=== PATIENT | male | born 1955 | race Caucasian/White ===

== ENCOUNTER 2016-10-28 13:08 | Inpatient (IN) ==
[2016-10-28] MEDS ORDERED: FUROSEMIDE 100 MG/10 ML VIAL IV STA (13:33)
[2016-10-28] MEDS ORDERED: DILTIAZEM 50 MG/10 ML VIAL IV STA (13:37)
--- NOTE | 2016-10-28 13:37 | Emergency Department Note ---
Cipriano Kaminski Rolonda, am scribing for, and in the presence of, Kranthi Shore MD 13: 33. Mone Kaminski James D, MD, personally performed the services described in this documentation, ascribed by Traci Cota in my presence, and it is both accurate and complete [id number] . Arrival - Arrival Chief Complaint: Shortness of Breath ED Nursing Triage Note: c/o sob and chf. pt has voided 800ml. Mode of Arrival: Stretcher Limitations: No Limitations Source: Patient, Old Records Reviewed, RN Notes Reviewed - History of Present Illness HPI Narrative: Pt is a 60 y/o male presenting to the ED via EMS from [place] for further evaluation of chest pain with an onset of hours ago. Pt has a PMHx of CHF, HTN, Cardiac dysrhythmia, and Cardiovascular problems. Pt confirms associated sxs of SOB onset of x1 day ago, that he couldn't breathe, and SOB worsens while lying down. No other complaint/pain in ED. Onset (ago): hour(s) Consistency: constant Severity: moderate Severity scale (1-10): 4 Allergies/Adverse Reactions: Allergies Allergy/AdvReac Type Severity Reaction Status Date / Time No Known Allergies Allergy Verified 02/07/16 15:18 Home Medications: Home Medications Medication Instructions Recorded Confirmed Type Amiodarone Tab [Cordarone Tab] 200 mg PO BID 02/07/16 10/28/16 History Atorvastatin [Lipitor] 40 mg PO BEDTIME 02/07/16 10/28/16 History Citalopram [CeleXA] 40 mg PO DAILY 02/07/16 10/28/16 History Glimepiride [Amaryl] 4 mg PO DAILY 02/07/16 10/28/16 History HYDROcodone/ACETAMIN 10-325 [[place] 1 tablet PO BID 02/07/16 10/28/16 History 10-325] Lisinopril 20 mg PO DAILY 02/07/16 10/28/16 History Apixaban [Eliquis] 5 mg PO BID #30 tablet 02/09/16 10/28/16 Rx Carvedilol [Coreg] 6.25 mg PO BID #60 tablet 02/09/16 10/28/16 Rx Nicotine 21 mg/24 Hr Patch 1 patch TRANSDERM DAILY #14 patch 02/09/16 10/28/16 Rx [Nicoderm CQ 21 mg/24 hr Patch] Aspirin EC Tab 81 mg PO DAILY 10/28/16 10/28/16 History Metformin HCl [Metformin HCl ER] 500 mg PO BID 10/28/16 10/28/16 History Review of System - Review of System 12 point system: reviewed and no additional remarkable complaints except as stated - Review of System Constitutional: Absent: fever Eyes: Absent: discharge Head/Ears/Nose/Throat: Absent: earache Respiratory: Present: respiratory distress (SOB) Cardiovascular: Absent: palpitations Gastrointestinal: Absent: abdominal pain Genitourinary male: Absent: dysuria Musculoskeletal: Absent: arm pain, back pain, leg pain, neck pain Skin: Absent: rash Neurological: Absent: headache Psychiatric: Absent: anxiety Endocrine: Absent: cold intolerance Hematological/Lymphatic: Absent: easy bleeding Medical,Surgical,& Family Hx - Medical History Cardio: History of: Cardiac Dysrhythmia (AFIB), Hypertension, Cardiovascular Problems (Suspected NICM) Endocrine: History of: Diabetes Mellitus (NIDDM) Respiratory: History of: Obstructive Sleep Apnea - Family History Family History: Reports;: Family Heart Disease - Social History Smoking Status: Smoker, status unknown Frequency of Alcohol Use: None Type of Drug Use: None Exam Vital Signs: Vital Signs Temperature 97.6 F 10/28/16 13:12 Pulse Rate 113 H 10/28/16 14:45 Respiratory Rate 20 10/28/16 14:45 Blood Pressure 124/80 10/28/16 14:45 O2 Sat by Pulse Oximetry 96 10/28/16 14:45 GENERAL: This is a well-nourished well-developed white male in no apparent distress. VITAL SIGNS: Reviewed HEENT: Head is atraumatic and normocephalic. Pupils are equal round react to light. Extraocular movements are intact. Oropharynx is benign with moist mucous membranes. NECK: Neck is soft and supple without tenderness. There are no masses. There is no lymphadenopathy. LUNGS: Bibasilar rales. Chest rises symmetrically. There is no chest wall tenderness. CV: Heart is irregularly irregular without murmurs rubs or gallops. ABDOMEN: Abdomen is soft, nontender to palpation. There are no abdominal abnormal masses palpated. There is no organomegaly. Bowel sounds are present and active. SKIN: Skin is warm and dry. No rash. EXTREMITIES: Patient has full range of motion without tenderness. There is no pedal edema. NEUROLOGIC: Awake alert and oriented 4. Cranial nerves II through XII are grossly intact. Motor is 5 over 5 in all extremities bilaterally. Course - Consultations Consultation #1: Discussed with Dr. Keller. Patient will be admitted to his service. Initial orders written for him. He will assume care of the patient upon arrival to the [facility]. Time: 15:50 Results - Labs Lab Results: I have reviewed the patients labs Labs: Lab performed at [facility] and reviewed by me: BNP 1406 CBC: WBCs 15,600, hemoglobin 13.4, hematocrit 41.7, Sodium 143, potassium 3.8, chloride 108, CO2 27, BUN 9, creatinine 0.7, glucose 172 Troponin 0.019, 4 INR 0.92 Laboratory Tests 10/28/ 14:25 Troponin I < 0.015 - Diagnostic Findings Procedure: Chest x-ray: image reviewed by me (No pleural effusions, no infiltrates.) Disposition Clinical Impression: Atrial fibrillation with RVR, Congestive heart failure Case discussed with: patient Disposition: Still a Patient Condition: Stable Time of Disposition: 15:42
[2016-10-28] MEDS ORDERED: DILTIAZEM INJ 100 MG in SODIUM CHLORIDE 0.9% 100 ML IV SCH (14:00)
[2016-10-28] MEDS ORDERED: DILTIAZEM 100 MG VIAL.ADD IV ONE (14:02)
[2016-10-28] MEDS ORDERED: FUROSEMIDE 100 MG/10 ML VIAL ONE (14:02)
[2016-10-28] MEDS ORDERED: DILTIAZEM 50 MG/10 ML VIAL IV ONE (14:03)
--- NOTE | 2016-10-28 14:06 | XRay Report ---
History: Shortness of breath Date: 10/28/2016 Study: Chest x-ray AP portable Comparison exam: February 07, 2016 chest x-ray The cardiac silhouette is not enlarged. There is no mediastinal mass. The pulmonary vasculature is not engorged. There is some minimal hazy infiltrate in the right infrahilar region, perhaps in the right middle lobe, which could represent some subtle pneumonia. The lungs and pleural spaces are otherwise clear. Osseous structures are similar. Impression: Equivocal right infrahilar pneumonia. Follow-up films recommended PROCEDURE INTERPRETED AT [facility] DEPARTMENT OF RADIOLOGY Final Report Signed by: Dr. Stormy Aguila
[2016-10-28] MEDS ORDERED: SODIUM CHLORIDE 0.9% 100 ML IV ONE (14:12)
[2016-10-28] MEDS ORDERED: ZALEPLON 5 MG CAPSULE PO PRN (16:37)
[2016-10-28] MEDS ORDERED: BISACODYL 5 MG TABLET PO PRN (16:37)
[2016-10-28] MEDS ORDERED: DOCUSATE SODIUM 100 MG CAPSULE PO PRN (16:37)
[2016-10-28] MEDS ORDERED: MORPHINE 2 MG/1 ML SYRINGE IV PRN (16:37)
[2016-10-28] MEDS ORDERED: ACETAMINOPHEN 325 MG TABLET PO PRN (16:37)
[2016-10-28] MEDS ORDERED: ONDANSETRON 4 MG/2 ML VIAL IV PRN (16:37)
[2016-10-28] MEDS ORDERED: MAGNESIUM SULF RIDER 4 GM in PREMIX 1 EACH IV PRN ×2 (16:40→17:38)
[2016-10-28] MEDS ORDERED: MAGNESIUM SULF RIDER 2 GM in PREMIX 1 EACH IV PRN ×2 (16:40→17:38)
--- NOTE | 2016-10-28 16:56 | Cardiology History & Physical ---
<Jordyn Cavazos E - Last Filed: 10/28/16 17:00> Assessment and Plan - Time spent with patient Time spent with patient: Greater than 30 minutes Time spent discussing smoking cessation with patient: 3 to 10 minutes (1) NICM (nonischemic cardiomyopathy) Status: Chronic Assessment and plan: SEE PLAN OF CARE LISTED BELOW Current Visit: Yes (2) Atrial fibrillation with RVR Status: Acute Assessment and plan: SEE PLAN OF CARE LISTED BELOW Current Visit: Yes (3) Smoker Status: Chronic Assessment and plan: SEE PLAN OF CARE LISTED BELOW Current Visit: No (4) Anticoagulant long-term use Status: Chronic Assessment and plan: SEE PLAN OF CARE LISTED BELOW Current Visit: No (5) COPD (chronic obstructive pulmonary disease) Status: Chronic Assessment and plan: SEE PLAN OF CARE LISTED BELOW Current Visit: No (6) Diabetes Status: Chronic Assessment and plan: SEE PLAN OF CARE LISTED BELOW Current Visit: No (7) High risk medication use Status: Chronic Assessment and plan: SEE PLAN OF CARE LISTED BELOW Current Visit: No History of Present Illness Chief complaint: ATRIAL FIB WITH RVR History of present illness: MEDICAL OFFICE SPECIALIST: DR. URIARTE PCP: DR. ANGIE BORREGO Patient is being seen in the emergency department. Mr. Lund, 60WM, previously seen by Dr. Uriarte in the hospital but not followed up in cardiology clinic. (Previously seen a [facility] cemetery, Dr. Cordoba, in [place], [place] but has not followed up in many years.) Risk factors include: hypertension, tobaccoism, diabetes, family history of premature coronary artery disease. History of known atrial fibrillation for which he takes Eliquis for stroke prevention. History of NICM (EF 40-45%) with [facility] 2015 in [place], [place] revealing no CAD. He has required multiple DCCVs in the past, seems to have maintained normal sinus rhythm intermittently then experiences exacerbations of atrial fibrillation. He tells me he is continues to take his Amiodarone 200 mg orally daily without fail as well as Eliquis twice daily without fail. Patient was transferred from [facility] October 28, 2016 with complaints of palpitations and shortness of breath, dizziness. He feels as if his heart is racing. He was found to be in atrial fibrillation with rapid ventricular response, rate 135 beats. Patient was then transferred to our facility. Denies chest pain, heaviness or tightness. States that he is only short of breath when his heart is racing. He believes that his breathing has actually improved since his heart catheterization. He believes he can tell when he is in atrial fib and has been doing well since the fall 2015. He has been given IV Diltiazem and his heart rate is now around 108 bpm. He is agreeable for hospitalization. He has continues to take Eliquis twice daily without fail despite not having insurance. I will transition his IV Diltiazem to IV Amiodarone. He does take Amiodarone 200 mg orally daily, holding for now as we initiate IV amiodarone. Continue to follow his telemetry and vital signs. Continue Eliquis. Will plan for an echocardiogram and DCCV possibly if he does not spontaneously convert. Continue to cycle cardiac biomarkers. Check thyroid studies. I will increase his Celexa from 40 mg to max dose of 60 mg each evening. He has lots of stress in his life, is crying and tearful today requesting increase in his antidepressant. I will further discuss with Dr. Keller and await additional recommendations. ASSESSMENT/PLAN: 1. ATRIAL FIB WITH RVR - Loading with IV Amiodorone now, D/C IV CCB. Plan for DCCV if he does not spontaneously convert. 2. HYPERTENSION - adjust medications accordingly during the hospital stay. 3. DIABETES - hold Metformin and use sliding scale for now. 4. TOBACCO USE - greater than 5 minutes was spent today discussing the merits of tobacco cessation 5. NICM - EF 40-45% per echocardiogram fall 2015. 6. DEPRESSION - increase Celexa to 60 mg each day. Home Medications Medication Instructions Recorded Confirmed Type Amiodarone Tab [Cordarone Tab] 200 mg PO BID 02/07/16 10/28/16 History Atorvastatin [Lipitor] 40 mg PO BEDTIME 02/07/16 10/28/16 History Citalopram [CeleXA] 40 mg PO DAILY 02/07/16 10/28/16 History Glimepiride [Amaryl] 4 mg PO DAILY 02/07/16 10/28/16 History HYDROcodone/ACETAMIN 10-325 [[place] 1 tablet PO BID 02/07/16 10/28/16 History 10-325] Lisinopril 20 mg PO DAILY 02/07/16 10/28/16 History Apixaban [Eliquis] 5 mg PO BID #30 tablet 02/09/16 10/28/16 Rx Carvedilol [Coreg] 6.25 mg PO BID #60 tablet 02/09/16 10/28/16 Rx Nicotine 21 mg/24 Hr Patch 1 patch TRANSDERM DAILY #14 patch 02/09/16 10/28/16 Rx [Nicoderm CQ 21 mg/24 hr Patch] Aspirin EC Tab 81 mg PO DAILY 10/28/16 10/28/16 History Metformin HCl [Metformin HCl ER] 500 mg PO BID 10/28/16 10/28/16 History Allergies Allergy/AdvReac Type Severity Reaction Status Date / Time No Known Allergies Allergy Verified 02/07/16 15:18 Review of systems: REVIEW OF SYSTEMS: - Constitutional Constitutional: Present: Fatigue, dizziness. Absent: syncope, anorexia, night sweats - EENT Eyes: Absent: blurry vision, loss of vision, diplopia Ears: Absent: decreased hearing, ear pain, ear discharge - Cardiovascular Cardiovascular: Denies: chest pain with exertion. Palpitations. Shortness of breath only with palpitations. Denies dyspnea on exertion, edema. Denies chest pain with deep breath, claudication - Respiratory Respiratory: Present: FELIZ, denies cough. Absent: wheezing, hemoptysis, change in phlegm color - Gastrointestinal Gastrointestinal: Denies: constipation. Absent: abdominal pain, hematemesis, hematochezia, melena, change in bowel habits, nausea - Genitourinary Genitourinary: Absent: difficulty urinating, dysuria, urinary hesitancy, flank pain - Musculoskeletal Musculoskeletal: Present: back pain Absent: joint swelling, muscle cramps, muscle weakness - Neurological Neurological: Present: normal gait without frequent falls. Absent: dizziness, hemiparesis - Psychiatric Psychiatric: Absent: anxiety, depression, difficulty concentrating - Endocrine Endocrine: Present: fatigue. Absent: cold intolerance, heat intolerance, polyuria, polyphagia, polydipsia - Hematologic/Lymphatic Hematologic/Lymphatic: Present: easy bruising. Absent: easy bleeding -Integumentary Integumentary: Absent: lesions, rashes, skin breakdown Medical,Surgical,& Family Hx - Medical History Cardio: History of: Cardiac Dysrhythmia (AFIB), Hypertension, Cardiovascular Problems (Suspected NICM) No history of: CAD, [place] Psychological: History of: Depression Endocrine: History of: Diabetes Mellitus (NIDDM) Respiratory: History of: Obstructive Sleep Apnea - Family History Family History: Reports;: Family Heart Disease - Social History Smoking Status: Current every day smoker Have you smoked in the last 12 months: Yes Time spent discussing smoking cessation with patient: 3 to 10 minutes Frequency of Alcohol Use: None Type of Drug Use: None Marital Status: Lives With:: Spouse Functional capacity: independent ambulation Cardiology Physical Exam - Constitutional Vitals: Vital Signs Temp Pulse Resp BP Pulse Ox 97.6 F 113 H 20 124/80 96 10/28/16 13:12 10/28/16 14:45 10/28/16 14:45 10/28/16 14:45 10/28/16 14:45 Intake and Output 10/28/16 10/28/16 10/28/16 07:59 15:59 23:59 Other: Weight 93.894 kg Patient Weight 10/28/16 23:59 Weight 93.894 kg Exam: General: [Appears well with no apparent distress.] [Pleasant and cooperative. ] [Appears comfortable.] HEENT: [PERRL, normocephalic, atraumatic. Mucous membranes moist. No jaundice noted. Conjunctiva moist and clear, sclerae anicteric] Neck: No JVD/HJR, no thyromegaly or lymphadenopathy noted. No carotid bruit appreciated Cardiac: [Irregularly irregular rhythm, fast rate.] [No obvious murmur rub or gallop.] Lungs: [Clear to auscultation without accessory muscle use to assist the respiratory pattern.] Using oxygen intermittently Abdomen: Soft, bowel sounds normoactive. Nontender and nondistended. No abdominal bruit or thrill noted. No masses noted. Musculoskeletal: No fluid collection. Decreased range of motion is noted. Extremities: No clubbing, cyanosis noted. [ No edema noted.] Upper extremity pulses 2+. Lower extremity pulses 2+. Capillary refill less than 3 seconds. Skin: No unusual lesions or rashes. No skin breakdown appreciated. Neuro: Awake, alert and oriented 3. Moves all extremities well without hemiparesis or paralysis. No essential tremor is appreciated. Result/EKG - Labs Lab Results: I have reviewed the past 24 hour labs Labs: Laboratory Results - last 24 hr 10/28/16 14:25 Troponin I < 0.015 - Diagnostic Findings Procedure: Chest x-ray: report reviewed by ga - EKG EKG results: interpreted by ga EKG shows: atrial fibrillation (RVR) <Georges Keller - Last Filed: 10/28/16 17:25> History of Present Illness History of present illness: Cardiology addendum. Patient examined chart reviewed discussed with nurse Jordyn sanchez. 60-year-old man with nonischemic cardiomyopathy. Patent coronaries and ejection fraction 40-45% by heart cath in 2014. Admitted now with recurrent atrial fibrillation and increasing shortness of breath. Patient has a long history of recurrent atrial fib. He has had 4 or 5 cardioversions in the past. Currently taking amiodarone 200 mg daily. He takes Eliquis for chronic anticoagulation. Active smoker. History of depression on Celexa. Type II diabetic on metformin. Chronic hypertension. Labs on transfer from [facility] white count 15.6 hemoglobin 13.3 negative troponin and normal creatinine. Plan DC oral amiodarone. Reload IV amiodarone. Echo Doppler. Anticipate cardioversion in the near future. Cardiology Physical Exam - Constitutional Vitals: Vital Signs Temp Pulse Resp BP Pulse Ox 97.6 F 79 24 139/94 97 10/28/16 13:12 10/28/16 16:45 10/28/16 16:45 10/28/16 16:45 10/28/16 16:45 Intake and Output 10/28/16 10/28/16 10/28/16 07:59 15:59 23:59 Intake Total Balance Intake: IV Cardizem Inj 100 mg In Ns 100 ml @ 10 MG/HR 10 mls /hr IV TITRATE BALAJI Rx#: [id number] Other: Weight 93.894 kg Patient Weight 10/28/16 23:59 Weight 93.894 kg Result/EKG - Labs Labs: Laboratory Results - last 24 hr 10/28/16 10/28/16 14:25 14:25 Troponin I < 0.015 TSH 3rd Generation 0.321 L
[2016-10-28] MEDS ORDERED: GLUCAGON 1 MG VIAL IM PRN (17:20)
[2016-10-28] MEDS ORDERED: DEXTROSE 50% 25 GM/50 ML VIAL IV PRN (17:20)
[2016-10-28] MEDS ORDERED: AMIODARONE INJ 150 MG in DEXTROSE 5% 100 ML IV ONE (17:38)
[2016-10-28] MEDS ORDERED: PNEUMOCOCCAL VACCINE (23 VALENT) 0.5 ML VIAL IM ONE (17:47)
[2016-10-28] MEDS ORDERED: AMIODARONE INJ 450 MG in DEXTROSE 5% 241 ML IV SCH (18:00)
[2016-10-28] MEDS: PANTOPRAZOLE 40 MG TABLET PO SCH (18:24)
[2016-10-28 18:32] LABS: Magnesium 1.8 MG/DL (1.8-2.4); Osmolality,Calculated 277.4 MOS/KG (273-304); Potassium 3.9 MMOL/L (3.5-5.1)
[2016-10-28] MEDS: SODIUM CHLORIDE 0.9% 1,000 ML IV SCH (18:36)
[2016-10-28 18:37] LABS: Troponin I Only < 0.015 NG/ML (0.00-0.045)
[2016-10-28] MEDS: INSULIN REGULAR 100 UNIT/ML SUBCUT SCH (20:54)
[2016-10-28] MEDS: APIXABAN 5 MG TABLET PO SCH (20:54)
[2016-10-28] MEDS: CARVEDILOL 6.25 MG TABLET PO SCH (20:54)
[2016-10-28] MEDS: ATORVASTATIN 40 MG TABLET PO SCH (20:54)
[2016-10-29] MEDS: AMIODARONE INJ 450 MG in DEXTROSE 5% 241 ML IV SCH ×3 (00:12→21:15)
[2016-10-29 02:43] LABS: Basophils # 0.1 10*3/uL (0.0-0.2); Basophils % 1.3 % (0.0-0.8); Eosinophils # 0.2 10*3/uL (0.0-0.87); Eosinophils % 1.8 % (0.00-10.9); Hematocrit 38.9 VOL% (42.0-52.0); Hemoglobin 13.2 GM/DL (14.0-18.0); Immature Granulocytes % 1.1 %; Immature Granulocytes Absolute 0.11 #; Lymphocytes # 2.9 10*3/uL (1.4-4.0); Lymphocytes % 28.5 % (21.2-54.2); Mean Corpuscular HGB Conc 33.9 GM/DL (32-36); Mean Corpuscular Hemoglobin 31 PG (27-34); Mean Corpuscular Volume 91.1 FL (87-102); Mean Platelet Volume 9.3 FL (9.6-12.0); Monocytes # 1.1 10*3/uL (0.11-0.8); Monocytes % 11.3 % (1.7-12.7); Neutrophils # 5.7 10*3/uL (1.4-7.4); Platelet Count 525 T/CUMM (130-400); Red Blood Count 4.27 MC/CUMM (3.8-5.5); Red Cell Distribution Width 14.9 % (9.3-17.3); White Blood Count 10.1 T/CUMM (4-12)
[2016-10-29 02:58] LABS: Alanine Aminotransferase 38 U/L (16-61); Albumin 2.5 G/DL (3.4-5.0); Alkaline Phosphatase 132 U/L (45-117); Aspartate Amino Transferase 25 U/L (0-37); Bilirubin,Total < 0.39 MG/DL (0.2-1.0); Blood Urea Nitrogen 11 MG/DL (7-18); Calcium 8.7 MG/DL (8.5-10.1); Cholesterol 134 MG/DL (50-200); Glucose 103 MG/DL (74-106); HDL Cholesterol 38 MG/DL (40-60); Potassium 3.9 MMOL/L (3.5-5.1); Risk Ratio 3.53; Sodium 143 MMOL/L (136-145); Total Protein 5.9 G/DL (6.4-8.3); Triglycerides 151 MG/DL (2-150); VLDL CHOLESTEROL 30.2 MG/DL
[2016-10-29 02:59] LABS: Troponin I Only < 0.015 NG/ML (0.00-0.045)
--- NOTE | 2016-10-29 06:28 | EKG Report ---
Stationary ECG Study [facility] Test Date: 10/28/2016 11:29:51 PM Pat Name: DL RUBALCAVA Department: Room: 288 Gender: M Biscuit Maker: : 1955 Requested by: Kranthi Marr Order Number: [id number] Reading MD: ADAM PEREZ Intervals [place] Rate: 101 P: 999 W[place]: 0 QRS: 81 QRSD: 110 T: 77 QT: 378 QTc: 436 Interpretive Statements SUPRAVENTRICULAR TACHYCARDIA WITH VARIABLE AV BLOCK Electronically Signed On 10-29-16 12:52:40 CDT by ADAM PEREZ [email or web address]
--- NOTE | 2016-10-29 06:28 | EKG Report ---
Stationary ECG Study [facility] Test Date: 10/28/2016 8:53:51 PM Pat Name: DL RUBALCAVA Department: Room: 288 Gender: M Cooper Helper: : 1955 Requested by: Kranthi Marr Order Number: [id number] Reading MD: ADAM PEREZ Intervals [place] Rate: 90 P: 999 MD: 0 QRS: 77 QRSD: 109 T: 81 QT: 436 QTc: 483 Interpretive Statements SLOW ATRIAL FLUTTER (TYPICAL) WITH 3:1 AV BLOCK Electronically Signed On 10-29-16 12:50:20 CDT by ADAM PEREZ [email or web address]
--- NOTE | 2016-10-29 07:21 | EKG Report ---
Stationary ECG Study [facility] Test Date: 10/29/2016 7:22:20 AM Pat Name: DL RUBALCAVA Department: Room: 288 Gender: M Solicitor Patent: ELVIN : [id number] Requested by: Jordyn Wheeler Order Number: [id number] Reading MD: ADAM PEREZ Intervals [place] Rate: 101 P: 999 NE: 0 QRS: 73 QRSD: 109 T: 28 QT: 397 QTc: 455 Interpretive Statements SUPRAVENTRICULAR TACHYCARDIA WITH VARIABLE AV BLOCK ABNORMAL RHYTHM ECG Electronically Signed On 10-29-16 13:02:15 CDT by ADAM PEREZ [email or web address]
[2016-10-29] MEDS: CITALOPRAM 40 MG TABLET PO SCH (08:41)
[2016-10-29] MEDS: APIXABAN 5 MG TABLET PO SCH ×2 (08:41→21:43)
[2016-10-29] MEDS: PANTOPRAZOLE 40 MG TABLET PO SCH (08:41)
[2016-10-29] MEDS: CARVEDILOL 6.25 MG TABLET PO SCH ×2 (08:41→16:59)
[2016-10-29] MEDS: NICOTINE 21 MG/24 HR PATCH TRANSDERM SCH (08:41)
[2016-10-29] MEDS: GLIMEPIRIDE 4 MG TABLET PO SCH (08:41)
[2016-10-29] MEDS: LISINOPRIL 20 MG TABLET PO SCH (08:41)
[2016-10-29] MEDS: INSULIN REGULAR 100 UNIT/ML SUBCUT SCH ×4 (08:42→21:42)
[2016-10-29 09:12] LABS: Troponin I Only < 0.015 NG/ML (0.00-0.045)
--- NOTE | 2016-10-29 10:34 | Cardiology Progress Note ---
Cardiology - PN: Subj Interval history: Cardiology note 60-year-old man with nonischemic cardiomyopathy and recurrent atrial fibrillation. Currently on IV amiodarone and telemetry shows ventricular rate around 110 No chest pain Blood pressure 148/86 Irregular rhythm no murmur Decreased breath sounds but clear Abdomen benign No leg edema Lab data today White count 10.1 hemoglobin 13.2 hematocrit 38.9 Sodium 143 potassium 3.9 chloride 107 CO2 30 BUN 11 creatinine 0.80 glucose 123 negative troponin Impression Recurrent atrial fibrillation Nonischemic cardia myopathy Patent coronaries and ejection fraction 40-45% by heart cath in 2014 Active smoker Caffeine abuse. Patient consumes 4 5 cups of coffee every morning, 3 or 4 ice tea daily and several coca alex. Type 2 diabetes on metformin Chronic hypertension Chronic anticoagulation with Eliquis Active smoker Plan Continue IV amiodarone loading Continue Eliquis 5 mg twice daily Increase lisinopril 20 mg twice daily Echo Doppler Cardioversion tomorrow. Procedure risk and benefits discussed with patient and his with nurse Jace present for the full discussion. All questions answered. He agrees proceed as outlined. Exam (Progress Note) - Constitutional Vitals: Period Temp Pulse Resp BP Sys/Caceres Pulse Ox Last 24 Hr 97.6 F-99.7 F 63-114 16-24 98-149/67-100 91-99 Result/EKG - Labs CBC & BMP: 10/29/16 01:32 10/29/16 01:32 Labs: Laboratory Results - last 24 hr 10/28/16 10/28/16 10/28/16 14:25 14:25 17:55 WBC RBC Hgb Hct MCV MCH MCHC RDW Plt Count MPV Neut % (Auto) Lymph % (Auto) Early % (Auto) Eos % (Auto) Baso % (Auto) Neut # (Auto) Lymph # (Auto) Early # (Auto) Eos # (Auto) Baso # (Auto) Immature Gran % Nucleated RBC % Immature Gran # Nucleated RBCs # Sodium Potassium Chloride Carbon Dioxide Anion Gap BUN Creatinine GFR Calculation BUN/Creatinine Ratio Glucose POC Glucose Calculated Osmolality Calcium Magnesium Total Bilirubin AST ALT Alkaline Phosphatase Total Creatine Kinase 29 L CK-MB (CK-2) < 1.0 Troponin I < 0.015 < 0.015 B-Natriuretic Peptide Total Protein Albumin Globulin Albumin/Globulin Ratio Triglycerides Cholesterol LDL Cholesterol VLDL Cholesterol HDL Cholesterol Heart Disease Risk Ratio TSH 3rd Generation 0.321 L 10/28/16 10/28/16 10/28/16 17:55 19:43 20:46 WBC RBC Hgb Hct MCV MCH MCHC RDW Plt Count MPV Neut % (Auto) Lymph % (Auto) Early % (Auto) Eos % (Auto) Baso % (Auto) Neut # (Auto) Lymph # (Auto) Early # (Auto) Eos # (Auto) Baso # (Auto) Immature Gran % Nucleated RBC % Immature Gran # Nucleated RBCs # Sodium 140 Potassium 3.9 Chloride 104 Carbon Dioxide 30 Anion Gap 9.9 BUN 7 Creatinine 0.80 GFR Calculation 116 BUN/Creatinine Ratio 8.00 Glucose 120 H POC Glucose 239 H Calculated Osmolality 277.4 Calcium 9.0 Magnesium 1.8 Total Bilirubin AST ALT Alkaline Phosphatase Total Creatine Kinase CK-MB (CK-2) Troponin I < 0.015 B-Natriuretic Peptide Total Protein Albumin Globulin Albumin/Globulin Ratio Triglycerides Cholesterol LDL Cholesterol VLDL Cholesterol HDL Cholesterol Heart Disease Risk Ratio [facility] 3rd Generation 10/29/16 10/29/16 10/29/16 01:32 01:32 01:32 WBC 10.1 RBC 4.27 Hgb 13.2 L Hct 38.9 L MCV 91.1 MCH 31 MCHC 33.9 RDW 14.9 Plt Count 525 H MPV 9.3 L Neut % (Auto) 56.0 Lymph % (Auto) 28.5 Early % (Auto) 11.3 Eos % (Auto) 1.8 Baso % (Auto) 1.3 H Neut # (Auto) 5.7 Lymph # (Auto) 2.9 Early # (Auto) 1.1 H Eos # (Auto) 0.2 Baso # (Auto) 0.1 Immature Gran % 1.1 Nucleated RBC % 0.0 Immature Gran # 0.11 Nucleated RBCs # 0.00 Sodium Potassium Chloride Carbon Dioxide Anion Gap BUN Creatinine GFR Calculation BUN/Creatinine Ratio Glucose POC Glucose Calculated Osmolality Calcium Magnesium Total Bilirubin AST ALT Alkaline Phosphatase Total Creatine Kinase 33 L CK-MB (CK-2) < 1.0 Troponin I < 0.015 < 0.015 B-Natriuretic Peptide Total Protein Albumin Globulin Albumin/Globulin Ratio Triglycerides Cholesterol LDL Cholesterol VLDL Cholesterol HDL Cholesterol Heart Disease Risk Ratio [facility] 3rd Generation 10/29/16 10/29/16 10/29/16 01:32 01:32 07:28 WBC RBC Hgb Hct MCV MCH MCHC RDW Plt Count MPV Neut % (Auto) Lymph % (Auto) Early % (Auto) Eos % (Auto) Baso % (Auto) Neut # (Auto) Lymph # (Auto) Early # (Auto) Eos # (Auto) Baso # (Auto) Immature Gran % Nucleated RBC % Immature Gran # Nucleated RBCs # Sodium 143 Potassium 3.9 Chloride 107 Carbon Dioxide 30 Anion Gap 9.9 BUN 11 Creatinine 0.80 GFR Calculation 116 BUN/Creatinine Ratio 13.00 Glucose 103 POC Glucose 123 H Calculated Osmolality 283.0 Calcium 8.7 Magnesium Total Bilirubin < 0.39 AST 25 ALT 38 Alkaline Phosphatase 132 H Total Creatine Kinase CK-MB (CK-2) Troponin I B-Natriuretic Peptide 164 H Total Protein 5.9 L Albumin 2.5 L Globulin 3.4 Albumin/Globulin Ratio 0.7 L Triglycerides 151 H Cholesterol 134 LDL Cholesterol 71.0 VLDL Cholesterol 30.2 HDL Cholesterol 38 L Heart Disease Risk Ratio 3.53 TSH 3rd Generation 10/29/16 08:26 WBC RBC Hgb Hct MCV MCH MCHC RDW Plt Count MPV Neut % (Auto) Lymph % (Auto) Early % (Auto) Eos % (Auto) Baso % (Auto) Neut # (Auto) Lymph # (Auto) Early # (Auto) Eos # (Auto) Baso # (Auto) Immature Gran % Nucleated RBC % Immature Gran # Nucleated RBCs # Sodium Potassium Chloride Carbon Dioxide Anion Gap BUN Creatinine GFR Calculation BUN/Creatinine Ratio Glucose POC Glucose Calculated Osmolality Calcium Magnesium Total Bilirubin AST ALT Alkaline Phosphatase Total Creatine Kinase 28 L CK-MB (CK-2) < 1.0 Troponin I < 0.015 B-Natriuretic Peptide Total Protein Albumin Globulin Albumin/Globulin Ratio Triglycerides Cholesterol LDL Cholesterol VLDL Cholesterol HDL Cholesterol Heart Disease Risk Ratio TSH 3rd Generation
--- NOTE | 2016-10-29 10:35 | History and Physical Update ---
Sedation H&P Update - History and Physical H&P was reviewed, the patient examined and there: are no changes in the patients condition since last H&P was completed. - Dictation Physical: refer to H&P completed by admitting physician - Physical Exam Mental Status: alert and oriented Heart: regular rate and rhythm Lung: clear to auscultation Abdomen: within normal limits Vitals: within normal limits - Sedation Plan for Sedation: moderate Patient Consent: Procedure disscussed with patient and patinet has consented., Risks and benefits were discussed with patient,including infection,, bleeding, injury to surrounding structures, seizure, temporary nerve, Patient understands and accepts potential risks/benefits and agrees to, proceed. ASA Class: II Airway Assessment: Class II: Soft palate, uvula, fauces visible
[2016-10-29] MEDS: SODIUM CHLORIDE 0.9% 1,000 ML IV SCH ×2 (14:35→14:41)
--- NOTE | 2016-10-29 21:29 | ECHO Report ---
Gumaro Lund Exam Date: 10/29/2016 09:25 Referring Physician: Technologist: everton Mackey ARDMS, RVT Age: 60 Ht (in): 69 Wt (lb): 207 Gender: M Exam Location: [facility] Echo Indications: Heart failure, unspecified, Cardiomyopathy, unspecified, Diabetes, high risk meds, Nicotine dependence, cigarettes, uncomplicated, COPD, Atrial fibrillation BP: 148 / 78 HR: 99 Rhythm: Atrial fibrillation Technical Quality: Fair IMPRESSIONS EF 40-45 % global hypokinesis. The right ventricle is normal in size and function. The right atrium is mildly enlarged. The left atrium is mildly enlarged. Mitral valve sclerosis. No mitral valve regurgitation. Trileaflet aortic valve. No aortic valve regurgitation. [id number]-[id number] tricuspid valve regurgitation. PAP45 mmHg. Pulmonic valve not well visualized. Normal pericardium without effusion. Normal ascending aorta dimension. MEASUREMENTS (Male / Female) Normal Values 2D ECHO LV Diastolic Diameter PLAX 5.4 cm 4.2 - 5.9 / 3.9 - 5.3 cm LV Systolic Diameter PLAX 4.4 cm LV Fractional Shortening PLAX 19.1 % IVS Diastolic Thickness 1.0 cm 0.6 - 1.0 / 0.6 - 0.9 cm LVPW Diastolic Thickness 1.0 cm 0.6 - 1.0 / 0.6 - 0.9 cm RV Internal Dim ED PLAX 3.9 cm Aortic Root Diameter 4.0 cm LA Systolic Diameter LX 3.9 cm 3.0 - 4.0 / 2.7 - 3.8 cm DOPPLER TR Peak Velocity 266.0 cm/s TR Peak Gradient 28.3 mmHg FINDINGS Left Ventricle EF 40-45 % global hypokinesis. Right Ventricle The right ventricle is normal in size and function. Right Atrium The right atrium is mildly enlarged. Left Atrium The left atrium is mildly enlarged. Mitral Valve Mitral valve sclerosis. No mitral valve regurgitation. Aortic Valve Trileaflet aortic valve. No aortic valve regurgitation. Tricuspid Valve Morphologically normal tricuspid valve. [id number] tricuspid valve regurgitation. PAP45 mmHg. Pulmonic Valve Pulmonic valve not well visualized. Pericardium Normal pericardium without effusion. Aorta Normal ascending aorta dimension. Dung Keller (Electronically Signed) Final Date: 29 October 2016 21:28
[2016-10-29] MEDS: ATORVASTATIN 40 MG TABLET PO SCH (21:42)
[2016-10-30 05:19] LABS: Basophils # 0.2 10*3/uL (0.0-0.2); Basophils % 1.6 % (0.0-0.8); Eosinophils # 0.2 10*3/uL (0.0-0.87); Eosinophils % 2.3 % (0.00-10.9); Hematocrit 38.5 VOL% (42.0-52.0); Immature Granulocytes % 0.8 %; Immature Granulocytes Absolute 0.08 #; Lymphocytes # 2.6 10*3/uL (1.4-4.0); Lymphocytes % 25.1 % (21.2-54.2); Mean Corpuscular HGB Conc 33.8 GM/DL (32-36); Mean Corpuscular Hemoglobin 31 PG (27-34); Mean Corpuscular Volume 91.2 FL (87-102); Mean Platelet Volume 9.3 FL (9.6-12.0); Monocytes % 9.8 % (1.7-12.7); Neutrophils # 6.1 10*3/uL (1.4-7.4); Neutrophils % 60.4 % (38.7-73.9); Platelet Count 494 T/CUMM (130-400); Red Blood Count 4.22 MC/CUMM (3.8-5.5); Red Cell Distribution Width 14.6 % (9.3-17.3); White Blood Count 10.2 T/CUMM (4-12)
[2016-10-30 05:52] LABS: Albumin 2.5 G/DL (3.4-5.0); Bilirubin,Total 0.6 MG/DL (0.2-1.0); Calcium 8.7 MG/DL (8.5-10.1); Osmolality,Calculated 281.1 MOS/KG (273-304); Potassium 3.6 MMOL/L (3.5-5.1); Total Protein 5.5 G/DL (6.4-8.3)
[2016-10-30] MEDS: AMIODARONE INJ 450 MG in DEXTROSE 5% 241 ML IV SCH ×2 (06:54→17:00)
[2016-10-30] MEDS: INSULIN REGULAR 100 UNIT/ML SUBCUT SCH ×3 (08:53→17:10)
[2016-10-30] MEDS ORDERED: MIDAZOLAM 10 MG/2 ML VIAL ONE ×2 (09:14→09:22)
[2016-10-30] MEDS ORDERED: NALOXONE 0.4 MG/ML VIAL ONE (09:14)
[2016-10-30] MEDS ORDERED: FLUMAZENIL 0.5 MG/5 ML VIAL IV ONE (09:20)
[2016-10-30] MEDS: SODIUM CHLORIDE 0.9% 1,000 ML IV SCH (09:34)
--- NOTE | 2016-10-30 09:59 | Event Note ---
Event note Synchronized cardioversion procedure note The patient developed recurrent atrial fibrillation. He was reloaded with IV amiodarone and continued on Eliquis. The procedure discussed with the patient and his [place] yesterday and today. All questions answered. Consent form signed. Continuous O2 sat monitoring was performed. Apical sternal patches were placed. The patient received a total dose of 7 mg of IV Versed to achieve and maintain adequate anesthesia throughout the procedure. Using the biphasic Zoll, successful synchronized cardioversion was achieved in the first attempt with 150 J. He probably turn to steady sinus rhythm. No bagging required. Presently the blood pressure is 135/80 the pulse is 54 and sinus and the O2 sat is 97% on 2 L. The patient is beginning to lighten. There were no obvious complications. Plan EKG now Home later today No driving for 24 hours Continue Eliquis twice daily Amiodarone 200 mg daily Decrease caffeine intake. Findings and plan discussed with patient's [place].
--- NOTE | 2016-10-30 10:11 | EKG Report ---
Stationary ECG Study [facility] Test Date: 10/30/2016 10:12:21 AM Pat Name: DL RUBALCAVA Department: Room: 288 Gender: M Admissions Evaluator: ELVIN : 1955 Requested by: Georges Keller Order Number: [id number] Reading MD: ADAM PEREZ Intervals [place] Rate: 51 P: 62 MT: 167 QRS: 68 QRSD: 101 T: 74 QT: 496 QTc: 473 Interpretive Statements SINUS BRADYCARDIA Electronically Signed On 11-01-16 14:14:08 CDT by ADAM PEREZ [email or web address]
[2016-10-30] MEDS: APIXABAN 5 MG TABLET PO SCH (13:31)
[2016-10-30] MEDS: CITALOPRAM 40 MG TABLET PO SCH (13:32)
[2016-10-30] MEDS: LISINOPRIL 20 MG TABLET PO SCH (13:32)
[2016-10-30] MEDS: GLIMEPIRIDE 4 MG TABLET PO SCH (13:32)
[2016-10-30] MEDS: NICOTINE 21 MG/24 HR PATCH TRANSDERM SCH (13:33)
[2016-10-30] MEDS: CARVEDILOL 6.25 MG TABLET PO SCH ×2 (13:33→17:10)
[2016-10-30] MEDS: PANTOPRAZOLE 40 MG TABLET PO SCH (13:33)
--- NOTE | 2016-10-30 16:09 | Discharge Summary ---
Hospital Course - Hospital Course Hospital Course: BIOLOGICAL SCIENCE TECHNICIAN: DR. URIARTE PCP: DR. ANGIE BORREGO Patient is being seen in the emergency department. Mr. Lund, 60WM, previously seen by Dr. Uriarte in the hospital but not followed up in cardiology clinic. (Previously seen a gate watch, Dr. Cordoba, in [place], [place] but has not followed up in many years.) Risk factors include: hypertension, tobaccoism, diabetes, family history of premature coronary artery disease. History of known atrial fibrillation for which he takes Eliquis for stroke prevention. History of NICM (EF 40-45%) with [facility] 2015 in [place], [place] revealing no CAD. He has required multiple DCCVs in the past, seems to have maintained normal sinus rhythm intermittently then experiences exacerbations of atrial fibrillation. He tells me he is continues to take his Amiodarone 200 mg orally daily without fail as well as Eliquis twice daily without fail. Patient was transferred from [facility] October 28, 2016 with complaints of palpitations and shortness of breath, dizziness. He feels as if his heart is racing. He was found to be in atrial fibrillation with rapid ventricular response, rate 135 beats. Patient was then transferred to our facility. Denies chest pain, heaviness or tightness. States that he is only short of breath when his heart is racing. He believes that his breathing has actually improved since his heart catheterization. He believes he can tell when he is in atrial fib and has been doing well since the fall 2015. He has been given IV Diltiazem and his heart rate is now around 108 bpm. He is agreeable for hospitalization. He has continues to take Eliquis twice daily without fail despite not having insurance. I will transition his IV Diltiazem to IV Amiodarone. He does take Amiodarone 200 mg orally daily, holding for now as we initiate IV amiodarone. Continue to follow his telemetry and vital signs. Continue Eliquis. Will plan for an echocardiogram and DCCV possibly if he does not spontaneously convert. Continue to cycle cardiac biomarkers. Check thyroid studies. I will increase his Celexa from 40 mg to max dose of 60 mg each evening. He has lots of stress in his life, is crying and tearful today requesting increase in his antidepressant. I will further discuss with Dr. Keller and await additional recommendations. OCTOBER 30, 2016: Today, patient underwent DCCV requiring one shock to deliver him back to normal sinus rhythm. He tolerated this well without complication. He remained in some sinus rhythm. In fact heart rate in the upper 50s, sinus bradycardia. He is anxious for release home. Having failed is met maximal medical therapy, patient is being discharged home in stable condition. Discharge medications include the following: Amiodarone 200 mg orally daily Eliquis 5 mg orally twice daily Coreg 6.25 p.o. twice daily Lisinopril 20 mg orally daily He will resume his other noncardiac preadmission medications. We did increase his Celexa from 40 mg daily to 60 mg daily and he will follow- up with his primary care providers for additional refills as needed. She will be given a one-month follow-up appointment with Dr. Uriarte. At that visit the following will be obtained: EKG - Time spent with patient Time with patient DS: Greater than 30 minutes Diagnosis - Discharge Diagnosis (1) NICM (nonischemic cardiomyopathy) Status: Chronic (2) Atrial fibrillation with RVR Status: Resolved (3) Smoker Status: Chronic (4) Anticoagulant long-term use Status: Chronic (5) COPD (chronic obstructive pulmonary disease) Status: Chronic (6) Diabetes Status: Chronic (7) High risk medication use Status: Chronic Specialty Discharge - Follow Up or Referrals Follow up with: Carl Uriarte MD [Physician] - 1 Month (EKG) Discharge Plan - Discharge Data Disposition: Disch To Home/Self Care Condition at Discharge: Stable Discharge Diet: heart healthy Activity: resume usual activities as tolerated Hygiene: no restrictions Weight Bearing at Discharge: full weight bearing Driving: no restrictions Contact your physician if you experience:: fever over 101, Difficulty voiding, Redness or swelling, Nausea/Vomiting, Shortness of breath, Bleeding, pain uncontrolled by pain medications - Discharge Medications New Citalopram [CeleXA] 60 mg PO DAILY #30 tablet Amiodarone Tab [Cordarone Tab] 200 mg PO DAILY #30 tablet Carvedilol [Coreg] 6.25 mg PO BID W/MEALS #60 tablet Continue HYDROcodone/ACETAMIN 10-325 [Harris 10-325] 1 tablet PO TID Lisinopril 20 mg PO DAILY Atorvastatin [Lipitor] 40 mg PO BEDTIME Glimepiride [Amaryl] 4 mg PO DAILY Apixaban [Eliquis] 5 mg PO BID #30 tablet Metformin HCl [Metformin HCl ER] 1,000 mg PO AC SUPPER Mirtazapine 45 mg PO BEDTIME Discontinued Citalopram [CeleXA] 40 mg PO DAILY Amiodarone Tab [Cordarone Tab] 200 mg PO BID Nicotine 21 mg/24 Hr Patch [Nicoderm CQ 21 mg/24 hr Patch] 1 patch TRANSDERM DAILY #14 patch Carvedilol 12.5 mg PO BID Aspirin EC Tab 81 mg PO DAILY - Follow Up or Referral - Forms/Instructions Exam - Constitutional Vitals: Period Temp Pulse Resp BP Sys/Caceres Pulse Ox Last 24 Hr 97 F-98.2 F 55-100 16-20 123-162/70-108 93-95 Exam: General: [Appears well with no apparent distress.] [Pleasant and cooperative. ] [Appears comfortable.] HEENT: [PERRL, normocephalic, atraumatic. Mucous membranes moist. No jaundice noted. Conjunctiva moist and clear, sclerae anicteric] Neck: No JVD/HJR, no thyromegaly or lymphadenopathy noted. No carotid bruit appreciated Cardiac: [Regular rate and rhythm.] [No murmur rub or gallop.] Lungs: [Clear to auscultation without accessory muscle use to assist the respiratory pattern.] Not requiring oxygen Abdomen: Soft, bowel sounds normoactive. Nontender and nondistended. No abdominal bruit or thrill noted. No masses noted. Musculoskeletal: No fluid collection. Decreased range of motion is noted. Extremities: No clubbing, cyanosis noted. [ No edema noted.] Upper extremity pulses 2+. Lower extremity pulses 2+. Capillary refill less than 3 seconds. Skin: No unusual lesions or rashes. No skin breakdown appreciated. Neuro: Awake, alert and oriented 3. Moves all extremities well without hemiparesis or paralysis. No essential tremor is appreciated. Discharge Results Procedures and tests throughout hospitalization: Pending Orders 10/31/16 04:00 Comp Blood Count Auto Diff IN AM Comprehensive Metabolic Panel IN AM Labs on day of discharge: Labs from last 24 hours 10/30/16 10/30/16 10/30/16 11:24 07:37 04:57 WBC RBC Hgb Hct MCV MCH MCHC RDW Plt Count MPV Neut % (Auto) Lymph % (Auto) [place] % (Auto) Eos % (Auto) Baso % (Auto) Neut # (Auto) Lymph # (Auto) [place] # (Auto) Eos # (Auto) Baso # (Auto) Immature Gran % Nucleated RBC % Immature Gran # Nucleated RBCs # Sodium 142 Potassium 3.6 Chloride 107 Carbon Dioxide 28 Anion Gap 10.6 BUN 12 Creatinine 0.80 GFR Calculation 117 BUN/Creatinine Ratio 15.00 Glucose 86 POC Glucose 129 H 96 Calculated Osmolality 281.1 Calcium 8.7 Total Bilirubin 0.60 AST 22 ALT 31 Alkaline Phosphatase 116 Total Protein 5.5 L Albumin 2.5 L Globulin 3.0 Albumin/Globulin Ratio 0.8 L 10/30/16 10/29/16 10/29/16 04:57 19:46 15:40 WBC 10.2 RBC 4.22 Hgb 13.0 L Hct 38.5 L MCV 91.2 MCH 31 MCHC 33.8 RDW 14.6 Plt Count 494 H MPV 9.3 L Neut % (Auto) 60.4 Lymph % (Auto) 25.1 [place] % (Auto) 9.8 Eos % (Auto) 2.3 Baso % (Auto) 1.6 H Neut # (Auto) 6.1 Lymph # (Auto) 2.6 [place] # (Auto) 1.0 H Eos # (Auto) 0.2 Baso # (Auto) 0.2 Immature Gran % 0.8 Nucleated RBC % 0.0 Immature Gran # 0.08 Nucleated RBCs # 0.00 Sodium Potassium Chloride Carbon Dioxide Anion Gap BUN Creatinine GFR Calculation BUN/Creatinine Ratio Glucose POC Glucose 203 H 126 H Calculated Osmolality Calcium Total Bilirubin AST ALT Alkaline Phosphatase Total Protein Albumin Globulin Albumin/Globulin Ratio - Imaging and Cardiology Cardiology Procedure: report reviewed by Procedure: Chest x-ray: report reviewed by DS: Provider Date of admission: 10/28/16 15:50 Primary care physician: . No PCP Attending physician on admission: Georges Keller MD Discharging clinician: Jordyn Cavazos NP Expected date of discharge: 10/30/16
[2016-10-30 17:35] VITALS: BP 128/75
--- NOTE | 2016-11-03 15:39 | Physician Query Form ---
CLICK EDIT DOCUMENT TO SELECT QUERY ANSWER --> OK --> SIGN Tati Abreu RN Clinical [employer] W) [phone] (f) [phone] [email or web address] PROVIDERS: Make your selection(s) from the choices in EACH section by typing an "x" and enter comments in the comment section. Please use your independent medical judgment in providing your response. This request does not imply that any particular answer is desired or expected. CLINICAL INDICATORS: (Providers should not edit this section) Based on documentation of "Congestive heart failure" Echo shows EF of 40-45%. BNP 164 Treated with IV Lasix. Please provide further specificity regarding CHF. ACUITY: ( ) Acute ( ) Chronic ( ) Acute on Chronic (x ) Clinically unable to determine TYPE: ( ) Systolic (HFrEF - heart failure with reduced systolic function/EF) ( ) Diastolic (HFpEF - heart failure with preserved systolic function/EF) ( ) Combined Systolic/Diastolic ( ) Other, please specify: ( ) Clinically unable to determine ( ) Past Medical History of Systolic CHF ( ) Past Medical History of Diastolic CHF ( ) Clinically unable to determine COMMENTS: PLEASE ALSO DOCUMENT RESPONSE IN PROGRESS NOTES AND/OR DISCHARGE SUMMARY Use of terms such as suspected, likely, or probable (associated with a specific diagnosis that is being evaluated, monitored, or treated as if it exists) are acceptable and can be restated in the discharge summary if not ruled out. MTDD
--- NOTE | 2016-11-27 11:46 | Physician Query Form ---
CLICK EDIT DOCUMENT TO SELECT QUERY ANSWER --> OK --> SIGN Tati Abreu RN Clinical Tin Flopper W) [phone] (f) [phone] [email or web address] PROVIDERS: Make your selection(s) from the choices in EACH section by typing an "x" and enter comments in the comment section. Please use your independent medical judgment in providing your response. This request does not imply that any particular answer is desired or expected. CLINICAL INDICATORS: (Providers should not edit this section) Based on documentation of "Congestive heart failure" Echo shows EF of 40-45%. BNP 164 Treated with IV Lasix 100mg IV. Please provide further specificity regarding CHF. ACUITY: ( ) Acute ( ) Chronic ( ) Acute on Chronic ( ) Other ( ) Clinically unable to determine TYPE: ( ) Systolic (HFrEF - heart failure with reduced systolic function/EF) ( ) Diastolic (HFpEF - heart failure with preserved systolic function/EF) ( ) Combined Systolic/Diastolic ( ) Other, please specify: ( ) Clinically unable to determine ( ) Past Medical History of Systolic CHF ( ) Past Medical History of Diastolic CHF (x ) Clinically unable to determine COMMENTS: PLEASE ALSO DOCUMENT RESPONSE IN PROGRESS NOTES AND/OR DISCHARGE SUMMARY Use of terms such as suspected, likely, or probable (associated with a specific diagnosis that is being evaluated, monitored, or treated as if it exists) are acceptable and can be restated in the discharge summary if not ruled out. MTDD
== END 2016-10-30 17:35 | disposition home or self-care (01) | DRG 310 ==
LOC: EDUNIT# → EDBD → N.ED 13:08 → N.EDINP 15:50 → N.TELEN 17:40
PROVIDERS: ADMIT Internal Medicine Cardiovascular Disease; ATTEND Internal Medicine Cardiovascular Disease

== ENCOUNTER 2017-04-06 17:10 | Inpatient (IN) ==
[2017-04-06] MEDS ORDERED: DEXTROSE 50% 25 GM/50 ML VIAL IV PRN (18:37)
[2017-04-06] MEDS ORDERED: GLUCAGON 1 MG VIAL IM PRN (18:37)
[2017-04-06] MEDS ORDERED: DEXTROSE 5% NACL 0.9% 1,000 ML IV SCH (19:00)
[2017-04-06 19:51] LABS: Troponin I Only < 0.015 NG/ML (0.00-0.045)
[2017-04-06] MEDS: APIXABAN 5 MG TABLET PO SCH (22:35)
[2017-04-06] MEDS: ATORVASTATIN 40 MG TABLET PO SCH (22:35)
[2017-04-06] MEDS: CARVEDILOL 6.25 MG TABLET PO SCH (22:35)
[2017-04-07] MEDS: AMIODARONE 200 MG TABLET PO SCH ×2 (00:30→08:34)
[2017-04-07 05:38] LABS: Basophils # 0.1 10*3/uL (0.0-0.2); Basophils % 0.8 % (0.0-0.8); Eosinophils # 0.3 10*3/uL (0.0-0.87); Eosinophils % 3.4 % (0.00-10.9); Hematocrit 42.3 VOL% (42.0-52.0); Hemoglobin 13.7 GM/DL (14.0-18.0); Immature Granulocytes % 0.9 %; Immature Granulocytes Absolute 0.07 #; Lymphocytes # 1.5 10*3/uL (1.4-4.0); Lymphocytes % 19.2 % (21.2-54.2); Mean Corpuscular HGB Conc 32.4 GM/DL (32-36); Mean Corpuscular Hemoglobin 31 PG (27-34); Mean Corpuscular Volume 94.2 FL (87-102); Mean Platelet Volume 9.9 FL (9.6-12.0); Monocytes # 0.6 10*3/uL (0.11-0.8); Neutrophils # 5.3 10*3/uL (1.4-7.4); Neutrophils % 67.7 % (38.7-73.9); Platelet Count 242 T/CUMM (130-400); Red Blood Count 4.49 MC/CUMM (3.8-5.5); Red Cell Distribution Width 15.3 % (9.3-17.3); White Blood Count 7.9 T/CUMM (4-12)
[2017-04-07 06:23] LABS: Troponin I Only 0.021 NG/ML (0.00-0.045)
[2017-04-07] MEDS: FLUoxetine 20 MG CAPSULE PO SCH (08:34)
[2017-04-07] MEDS: CARVEDILOL 6.25 MG TABLET PO SCH ×2 (08:34→21:24)
[2017-04-07] MEDS: LISINOPRIL 20 MG TABLET PO SCH (08:34)
[2017-04-07] MEDS: APIXABAN 5 MG TABLET PO SCH ×2 (08:34→21:24)
[2017-04-07] MEDS: GLIMEPIRIDE 4 MG TABLET PO SCH (08:36)
[2017-04-07] MEDS ORDERED: AMIODARONE 200 MG TABLET PO SCH (09:00)
[2017-04-07 10:47] LABS: Apearance,Urine Slightly Hazy (Clear); Bilirubin,Urine Negative (Negative); Blood, Urine Negative (Negative); Glucose,Urine (UA) 150 mg/dL (Negative); Ketones,Urine Negative (Negative); Mucus,Urine Occasional /LPF (Occasional); Nitrite,Urine Negative (Negative); Protein,Urine Negative; RBC,Urine <1 /HPF (0-4); Squamous Epithelial Cell,Urine Occasional /HPF (0-10); Urine Color Yellow (Yellow); Urine Specific Gravity 1.019 (1.001-1.035); WBC,Urine 1 /HPF (0-6)
[2017-04-07 10:48] LABS: Barbiturates Screen,Urine Negative (Negative); Benzodiazepines Screen,Urine Negative (Negative); Cannabinoid Screen,Urine Negative (Negative); Opiate Screen,Urine Negative (Negative); Phencyclidine Screen,Urine Negative (Negative)
[2017-04-07] MEDS ORDERED: AMIODARONE INJ 150 MG in DEXTROSE 5% 100 ML IV ONE (11:31)
[2017-04-07] MEDS ORDERED: AMIODARONE INJ 450 MG in DEXTROSE 5% 241 ML IV SCH (12:30)
[2017-04-07 13:29] LABS: Troponin I Only < 0.015 NG/ML (0.00-0.045)
[2017-04-07] MEDS: metFORMIN 500 MG TABLET PO SCH (16:30)
[2017-04-07] MEDS ORDERED: MAGNESIUM HYDROXIDE SUSP 30 ML UDCUP PO PRN (17:21)
[2017-04-07] MEDS ORDERED: diphenhydrAMINE CAP 25 MG CAPSULE PO PRN (17:21)
[2017-04-07] MEDS ORDERED: ZALEPLON 5 MG CAPSULE PO PRN (17:21)
[2017-04-07] MEDS ORDERED: ONDANSETRON 4 MG/2 ML VIAL IV PRN (17:22)
[2017-04-07] MEDS: AMIODARONE INJ 450 MG in DEXTROSE 5% 241 ML IV SCH (18:12)
[2017-04-07] MEDS: ATORVASTATIN 40 MG TABLET PO SCH (21:24)
[2017-04-08] MEDS: AMIODARONE INJ 450 MG in DEXTROSE 5% 241 ML IV SCH ×2 (01:27→15:20)
[2017-04-08 05:55] LABS: Basophils # 0.1 10*3/uL (0.0-0.2); Basophils % 0.8 % (0.0-0.8); Eosinophils # 0.9 10*3/uL (0.0-0.87); Eosinophils % 8.7 % (0.00-10.9); Hematocrit 40.9 VOL% (42.0-52.0); Hemoglobin 13.5 GM/DL (14.0-18.0); Immature Granulocytes % 0.7 %; Immature Granulocytes Absolute 0.07 #; Mean Corpuscular Hemoglobin 31 PG (27-34); Mean Corpuscular Volume 93.8 FL (87-102); Mean Platelet Volume 9.9 FL (9.6-12.0); Monocytes # 1.1 10*3/uL (0.11-0.8); Monocytes % 11.1 % (1.7-12.7); Neutrophils # 6.1 10*3/uL (1.4-7.4); Neutrophils % 59.7 % (38.7-73.9); Platelet Count 226 T/CUMM (130-400); Red Blood Count 4.36 MC/CUMM (3.8-5.5); Red Cell Distribution Width 14.9 % (9.3-17.3); White Blood Count 10.3 T/CUMM (4-12)
[2017-04-08 06:25] LABS: Calcium 8.6 MG/DL (8.5-10.1); Magnesium 1.8 MG/DL (1.8-2.4); Osmolality,Calculated 281.8 MOS/KG (273-304); Potassium 4.5 MMOL/L (3.5-5.1)
[2017-04-08] MEDS: APIXABAN 5 MG TABLET PO SCH ×2 (08:30→22:00)
[2017-04-08] MEDS: CARVEDILOL 6.25 MG TABLET PO SCH ×2 (08:30→22:00)
[2017-04-08] MEDS: GLIMEPIRIDE 4 MG TABLET PO SCH (08:30)
[2017-04-08] MEDS: LISINOPRIL 20 MG TABLET PO SCH (08:30)
[2017-04-08] MEDS: FLUoxetine 20 MG CAPSULE PO SCH (08:30)
[2017-04-08] MEDS ORDERED: POTASSIUM CHLORIDE RIDER 10 MEQ in PREMIX 1 EACH IV PRN (10:34)
[2017-04-08] MEDS ORDERED: MAGNESIUM SULF RIDER 2 GM in PREMIX 1 EACH IV PRN (11:00)
[2017-04-08] MEDS: metFORMIN 500 MG TABLET PO SCH (17:26)
[2017-04-08] MEDS: ATORVASTATIN 40 MG TABLET PO SCH (22:00)
[2017-04-09] MEDS: AMIODARONE INJ 450 MG in DEXTROSE 5% 241 ML IV SCH ×2 (04:18→10:00)
[2017-04-09 09:09] LABS: Basophils % 0.3 % (0.0-0.8); Eosinophils # 0.5 10*3/uL (0.0-0.87); Eosinophils % 4.5 % (0.00-10.9); Hemoglobin 14.2 GM/DL (14.0-18.0); Immature Granulocytes % 0.4 %; Immature Granulocytes Absolute 0.05 #; Lymphocytes # 1.5 10*3/uL (1.4-4.0); Lymphocytes % 13.4 % (21.2-54.2); Mean Corpuscular HGB Conc 33.8 GM/DL (32-36); Mean Corpuscular Hemoglobin 31 PG (27-34); Mean Corpuscular Volume 91.7 FL (87-102); Mean Platelet Volume 9.7 FL (9.6-12.0); Monocytes # 1.2 10*3/uL (0.11-0.8); Monocytes % 10.7 % (1.7-12.7); Neutrophils # 8.1 10*3/uL (1.4-7.4); Neutrophils % 70.7 % (38.7-73.9); Platelet Count 246 T/CUMM (130-400); Red Blood Count 4.58 MC/CUMM (3.8-5.5); Red Cell Distribution Width 14.8 % (9.3-17.3); White Blood Count 11.5 T/CUMM (4-12)
[2017-04-09] MEDS ORDERED: MIDAZOLAM 10 MG/2 ML VIAL ONE (09:49)
[2017-04-09] MEDS ORDERED: MEPERIDINE 50 MG/1 ML VIAL ONE (09:49)
[2017-04-09 09:51] LABS: Calcium 8.9 MG/DL (8.5-10.1); Magnesium 1.8 MG/DL (1.8-2.4); Osmolality,Calculated 278.5 MOS/KG (273-304); Potassium 4.2 MMOL/L (3.5-5.1)
[2017-04-09] MEDS: GLIMEPIRIDE 4 MG TABLET PO SCH (11:35)
[2017-04-09] MEDS: APIXABAN 5 MG TABLET PO SCH (13:25)
[2017-04-09] MEDS: CARVEDILOL 6.25 MG TABLET PO SCH (13:25)
[2017-04-09] MEDS: FLUoxetine 20 MG CAPSULE PO SCH (13:25)
[2017-04-09] MEDS: LISINOPRIL 20 MG TABLET PO SCH (13:26)
[2017-04-09 16:19] VITALS: BP 117/59
[2017-04-09] MEDS: metFORMIN 500 MG TABLET PO SCH (17:18)
== END 2017-04-09 19:00 | disposition home or self-care (01) | DRG 309 ==
LOC: EDBD → EDUNIT# → N.ED 17:10 → N.EDINP 18:37 → N.TELES 19:08
PROVIDERS: ADMIT Internal Medicine Clinical Cardiac Electrophysiology; ATTEND Internal Medicine Clinical Cardiac Electrophysiology

== ENCOUNTER 2018-11-12 14:04 | Inpatient (IN) ==
[2018-11-12] MEDS ORDERED: GLUCAGON 1 MG VIAL IM PRN ×2 (16:49→20:38)
[2018-11-12] MEDS ORDERED: DEXTROSE 50% 25 GM/50 ML VIAL IV PRN ×2 (16:49→20:38)
[2018-11-12] MEDS ORDERED: NITROGLYCERIN SL 0.4 MG TABLET SL PRN (20:06)
[2018-11-12] MEDS ORDERED: ONDANSETRON 4 MG/2 ML VIAL IV PRN (20:09)
[2018-11-12] MEDS ORDERED: cefTRIAXone 1,000 MG in SYRINGE 1 EACH IV SCH (21:00)
[2018-11-12] MEDS: BENZONATATE 100 MG CAPSULE PO SCH (21:40)
[2018-11-12] MEDS: ATORVASTATIN 40 MG TABLET PO SCH (21:40)
[2018-11-12] MEDS: TEMAZEPAM 15 MG CAPSULE PO SCH (21:40)
[2018-11-12] MEDS: APIXABAN 5 MG TABLET PO SCH (21:40)
[2018-11-12] MEDS: guaiFENesin/DM ER 600-30 MG TABLET PO SCH (21:40)
[2018-11-12] MEDS: AMIODARONE 200 MG TABLET PO SCH (21:41)
[2018-11-12] MEDS: INSULIN LISPRO 100 UNIT/ML SUBCUT SCH (21:50)
[2018-11-12] MEDS ORDERED: AZITHROMYCIN INJ 500 MG in SODIUM CHLORIDE 0.9% 250 ML IV SCH (22:00)
[2018-11-12] MEDS: NICOTINE 21 MG/24 HR PATCH TRANSDERM SCH (23:32)
[2018-11-13 01:08] LABS: Basophils % 0.3 % (0.0-0.8); Hematocrit 36.6 VOL% (42.0-52.0); Hemoglobin 11.8 GM/DL (14.0-18.0); Immature Granulocytes % 0.7 %; Immature Granulocytes Absolute 0.05 #; Lymphocytes # 0.5 10*3/uL (1.4-4.0); Lymphocytes % 7.3 % (21.2-54.2); Mean Corpuscular HGB Conc 32.2 GM/DL (32-36); Mean Corpuscular Volume 97.3 FL (87-102); Mean Platelet Volume 10.5 FL (9.6-12.0); Monocytes % 2.2 % (1.7-12.7); Neutrophils % 89.5 % (38.7-73.9); Platelet Count 210 T/CUMM (130-400); Red Blood Count 3.76 MC/CUMM (3.8-5.5); Red Cell Distribution Width 14.9 % (9.3-17.3); White Blood Count 7.3 T/CUMM (4-12)
[2018-11-13] MEDS: ALBUTEROL/IPRATROPIUM 3 ML NEB RESP TX SCH ×4 (01:18→19:32)
[2018-11-13 01:31] LABS: Calcium 9.1 MG/DL (8.5-10.1); Osmolality,Calculated 300.5 MOS/KG (273-304); Risk Ratio 2.2; Thyroid Stimulating Hormone 0.114 uIU/ml (0.358-3.74); VLDL CHOLESTEROL 14.2 MG/DL
[2018-11-13] MEDS: INSULIN LISPRO 100 UNIT/ML SUBCUT SCH ×5 (01:35→21:49)
[2018-11-13] MEDS: PANTOPRAZOLE 40 MG TABLET PO SCH (08:47)
[2018-11-13] MEDS: BENZONATATE 100 MG CAPSULE PO SCH ×3 (08:47→21:49)
[2018-11-13] MEDS: guaiFENesin/DM ER 600-30 MG TABLET PO SCH ×2 (08:47→21:48)
[2018-11-13] MEDS: AMIODARONE 200 MG TABLET PO SCH ×2 (08:48→21:48)
[2018-11-13] MEDS: FLUoxetine 20 MG CAPSULE PO SCH (08:48)
[2018-11-13] MEDS: CYANOCOBALAMIN 500 MCG TABLET PO SCH (08:48)
[2018-11-13] MEDS: APIXABAN 5 MG TABLET PO SCH ×2 (08:48→21:49)
[2018-11-13] MEDS: MAGNESIUM OXIDE 400 MG TABLET PO SCH (08:48)
[2018-11-13] MEDS: LISINOPRIL 20 MG TABLET PO SCH (08:48)
[2018-11-13] MEDS: NICOTINE 21 MG/24 HR PATCH TRANSDERM SCH (08:49)
[2018-11-13] MEDS: FUROSEMIDE 40 MG/4 ML VIAL IV SCH (16:52)
[2018-11-13] MEDS: TEMAZEPAM 15 MG CAPSULE PO SCH (21:48)
[2018-11-13] MEDS: ATORVASTATIN 40 MG TABLET PO SCH (21:49)
[2018-11-14] MEDS: ALBUTEROL/IPRATROPIUM 3 ML NEB RESP TX SCH ×2 (00:36→07:14)
[2018-11-14] MEDS: INSULIN LISPRO 100 UNIT/ML SUBCUT SCH ×2 (07:44→12:01)
[2018-11-14] MEDS ORDERED: FUROSEMIDE 40 MG TABLET PO SCH (09:00)
[2018-11-14] MEDS: LISINOPRIL 20 MG TABLET PO SCH (09:09)
[2018-11-14] MEDS: AMIODARONE 200 MG TABLET PO SCH (09:10)
[2018-11-14] MEDS: APIXABAN 5 MG TABLET PO SCH (09:10)
[2018-11-14] MEDS: FLUoxetine 20 MG CAPSULE PO SCH (09:10)
[2018-11-14] MEDS: PANTOPRAZOLE 40 MG TABLET PO SCH (09:10)
[2018-11-14] MEDS: CYANOCOBALAMIN 500 MCG TABLET PO SCH (09:10)
[2018-11-14] MEDS: NICOTINE 21 MG/24 HR PATCH TRANSDERM SCH (09:10)
[2018-11-14] MEDS: BENZONATATE 100 MG CAPSULE PO SCH (09:10)
[2018-11-14] MEDS: guaiFENesin/DM ER 600-30 MG TABLET PO SCH (09:10)
[2018-11-14] MEDS: MAGNESIUM OXIDE 400 MG TABLET PO SCH (09:10)
[2018-11-14] MEDS: FUROSEMIDE 40 MG/4 ML VIAL IV SCH (09:38)
[2018-11-14 11:47] VITALS: BP 143/103
== END 2018-11-14 14:07 | disposition home or self-care (01) | DRG 292 ==
LOC: SUATTDRO 15:51 → N.TELEN 15:51
PROVIDERS: ADMIT Internal Medicine; ATTEND Internal Medicine Geriatric Medicine

== ENCOUNTER 2019-05-08 19:31 | Inpatient (IN) ==
[2019-05-08] MEDS ORDERED: hydrALAZINE 20 MG/1 ML VIAL IV PRN (22:29)
[2019-05-08] MEDS ORDERED: NITROGLYCERIN SL 0.4 MG TABLET SL PRN (22:31)
[2019-05-08] MEDS ORDERED: DEXTROSE 50% 25 GM/50 ML SYRINGE IV PRN (22:32)
[2019-05-08] MEDS ORDERED: GLUCAGON 1 MG VIAL IM PRN (22:32)
[2019-05-08] MEDS ORDERED: ONDANSETRON 4 MG/2 ML VIAL IV PRN (23:01)
[2019-05-08] MEDS ORDERED: ZALEPLON 5 MG CAPSULE PO PRN (23:01)
[2019-05-08] MEDS ORDERED: diphenhydrAMINE CAP 25 MG CAPSULE PO PRN (23:01)
[2019-05-08] MEDS ORDERED: PROMETHAZINE 25 MG TABLET PO PRN (23:01)
[2019-05-08] MEDS ORDERED: guaiFENesin/DM ER 600-30 MG TABLET PO PRN (23:01)
[2019-05-08] MEDS ORDERED: ACETAMINOPHEN 325 MG TABLET PO PRN (23:01)
[2019-05-08] MEDS ORDERED: DOCUSATE SODIUM 100 MG CAPSULE PO PRN (23:01)
[2019-05-08 23:17] LABS: Basophils # 0.2 10*3/uL (0.0-0.2); Basophils % 1.8 % (0.0-0.8); Eosinophils # 0.3 10*3/uL (0.0-0.87); Eosinophils % 2.7 % (0.00-10.9); Hematocrit 39.1 VOL% (42.0-52.0); Hemoglobin 12.6 GM/DL (14.0-18.0); Immature Granulocytes % 0.3 %; Immature Granulocytes Absolute 0.03 #; Lymphocytes # 2.3 10*3/uL (1.4-4.0); Lymphocytes % 24.5 % (21.2-54.2); Mean Corpuscular HGB Conc 32.2 GM/DL (32-36); Mean Platelet Volume 9.5 FL (9.6-12.0); Monocytes % 12.3 % (1.7-12.7); Neutrophils % 58.4 % (38.7-73.9); Platelet Count 326 T/CUMM (130-400); Red Blood Count 3.99 MC/CUMM (3.8-5.5); Red Cell Distribution Width 14.1 % (9.3-17.3); White Blood Count 9.5 T/CUMM (4-12)
[2019-05-08] MEDS ORDERED: ALBUTEROL 2.5 MG/3 ML NEB RESP TX PRN (23:26)
[2019-05-08 23:32] LABS: Calcium 8.3 MG/DL (8.5-10.1); Osmolality,Calculated 291.1 MOS/KG (273-304)
[2019-05-09] MEDS: INSULIN LISPRO 100 UNIT/ML SUBCUT SCH ×5 (00:23→22:10)
[2019-05-09] MEDS: ALBUTEROL/IPRATROPIUM 3 ML NEB RESP TX SCH ×4 (02:40→19:17)
[2019-05-09 04:57] LABS: Basophils # 0.1 10*3/uL (0.0-0.2); Basophils % 1.3 % (0.0-0.8); Eosinophils # 0.3 10*3/uL (0.0-0.87); Eosinophils % 3.2 % (0.00-10.9); Hematocrit 34.5 VOL% (42.0-52.0); Hemoglobin 11.4 GM/DL (14.0-18.0); Immature Granulocytes % 0.4 %; Immature Granulocytes Absolute 0.04 #; Lymphocytes # 2.6 10*3/uL (1.4-4.0); Lymphocytes % 26.1 % (21.2-54.2); Mean Corpuscular Volume 96.9 FL (87-102); Mean Platelet Volume 10.1 FL (9.6-12.0); Monocytes % 13.8 % (1.7-12.7); Neutrophils % 55.2 % (38.7-73.9); Platelet Count 298 T/CUMM (130-400); Red Blood Count 3.56 MC/CUMM (3.8-5.5); Red Cell Distribution Width 14.1 % (9.3-17.3); White Blood Count 9.8 T/CUMM (4-12)
[2019-05-09 05:27] LABS: Alanine Aminotransferase 39 U/L (16-61); Albumin 2.6 G/DL (3.4-5.0); Alkaline Phosphatase 132 U/L (45-117); Aspartate Amino Transferase 33 U/L (0-37); Bilirubin,Total < 0.39 MG/DL (0.2-1.0); Blood Urea Nitrogen 16 MG/DL (7-18); Calcium 8.3 MG/DL (8.5-10.1); Estimated Glom Filtration Rate 98 ML/MIN; Glucose 248 MG/DL (74-106); Osmolality,Calculated 291.1 MOS/KG (273-304)
[2019-05-09] MEDS ORDERED: carvediloL 6.25 MG TABLET PO SCH (08:00)
[2019-05-09] MEDS ORDERED: POTASSIUM CHLORIDE 20 MEQ TABLET PO ONE (08:02)
[2019-05-09] MEDS: ATORVASTATIN 40 MG TABLET PO SCH (08:56)
[2019-05-09] MEDS: lisinopriL 20 MG TABLET PO SCH (08:56)
[2019-05-09] MEDS: PANTOPRAZOLE 40 MG TABLET PO SCH (08:56)
[2019-05-09] MEDS: APIXABAN 5 MG TABLET PO SCH ×2 (08:56→22:11)
[2019-05-09] MEDS: NICOTINE 21 MG/24 HR PATCH TRANSDERM SCH (08:56)
[2019-05-09] MEDS: AMIODARONE 200 MG TABLET PO SCH ×2 (08:56→22:12)
[2019-05-09] MEDS: MAGNESIUM OXIDE 400 MG TABLET PO SCH (08:56)
[2019-05-09] MEDS: FUROSEMIDE 40 MG/4 ML VIAL IV SCH ×2 (08:57→16:07)
[2019-05-09] MEDS ORDERED: carvediloL 6.25 MG TABLET PO ONE (09:34)
[2019-05-09 11:02] LABS: Barbiturates Screen,Urine Negative (Negative); Benzodiazepines Screen,Urine Negative (Negative); Cannabinoid Screen,Urine Negative (Negative); Opiate Screen,Urine Negative (Negative); Phencyclidine Screen,Urine Negative (Negative)
[2019-05-09] MEDS ORDERED: MONTELUKAST 10 MG TABLET PO SCH (21:00)
[2019-05-09] MEDS: carvediloL 6.25 MG TABLET PO SCH (22:11)
[2019-05-09] MEDS: FLUTICASONE/SALMETEROL 100-50 DISKUS 14 DOSE INH SCH (22:12)
[2019-05-10] MEDS: ALBUTEROL/IPRATROPIUM 3 ML NEB RESP TX SCH ×2 (01:37→07:10)
[2019-05-10 04:43] LABS: Basophils # 0.1 10*3/uL (0.0-0.2); Basophils % 1.3 % (0.0-0.8); Eosinophils # 0.3 10*3/uL (0.0-0.87); Eosinophils % 3.2 % (0.00-10.9); Hematocrit 36.9 VOL% (42.0-52.0); Immature Granulocytes % 0.5 %; Immature Granulocytes Absolute 0.05 #; Lymphocytes # 2.4 10*3/uL (1.4-4.0); Lymphocytes % 22.4 % (21.2-54.2); Mean Corpuscular HGB Conc 32.5 GM/DL (32-36); Mean Corpuscular Volume 96.3 FL (87-102); Monocytes % 11.1 % (1.7-12.7); Neutrophils % 61.5 % (38.7-73.9); Platelet Count 327 T/CUMM (130-400); Red Blood Count 3.83 MC/CUMM (3.8-5.5); Red Cell Distribution Width 14.1 % (9.3-17.3); White Blood Count 10.7 T/CUMM (4-12)
[2019-05-10 05:15] LABS: Calcium 8.9 MG/DL (8.5-10.1); Osmolality,Calculated 281.4 MOS/KG (273-304)
[2019-05-10] MEDS ORDERED: AZITHROMYCIN INJ 500 MG in SODIUM CHLORIDE 0.9% 250 ML IV SCH (07:00)
[2019-05-10 07:58] VITALS: BP 164/87
[2019-05-10] MEDS: FUROSEMIDE 40 MG/4 ML VIAL IV SCH (08:57)
[2019-05-10] MEDS: INSULIN LISPRO 100 UNIT/ML SUBCUT SCH (08:57)
[2019-05-10] MEDS: lisinopriL 20 MG TABLET PO SCH (08:58)
[2019-05-10] MEDS: AMIODARONE 200 MG TABLET PO SCH (08:58)
[2019-05-10] MEDS: carvediloL 6.25 MG TABLET PO SCH (08:58)
[2019-05-10] MEDS: MAGNESIUM OXIDE 400 MG TABLET PO SCH (08:58)
[2019-05-10] MEDS: APIXABAN 5 MG TABLET PO SCH (08:59)
[2019-05-10] MEDS: PANTOPRAZOLE 40 MG TABLET PO SCH (08:59)
[2019-05-10] MEDS: ATORVASTATIN 40 MG TABLET PO SCH (08:59)
[2019-05-10] MEDS: FLUTICASONE/SALMETEROL 100-50 DISKUS 14 DOSE INH SCH (09:03)
[2019-05-10] MEDS: NICOTINE 21 MG/24 HR PATCH TRANSDERM SCH (09:04)
== END 2019-05-10 12:11 | disposition home or self-care (01) | DRG 292 ==
LOC: N.TELEN → OBSVTOIN 20:14 → SUATTDRO 20:14
PROVIDERS: ADMIT Internal Medicine; ATTEND Internal Medicine

== ENCOUNTER 2019-06-10 13:43 | Inpatient (IN) ==
[2019-06-10] MEDS ORDERED: GLUCAGON 1 MG VIAL IM PRN ×2 (17:23)
[2019-06-10] MEDS ORDERED: DEXTROSE 50% 25 GM/50 ML VIAL IV PRN (17:23)
[2019-06-10] MEDS ORDERED: DEXTROSE 10% 250 ML BAG IV PRN (17:23)
[2019-06-10] MEDS ORDERED: NITROGLYCERIN SL 0.4 MG TABLET SL PRN (17:27)
[2019-06-10] MEDS ORDERED: IPRATROPIUM 500 MCG/2.5 ML NEB RESP TX PRN (17:27)
[2019-06-10] MEDS ORDERED: ALUM/MAG/SIMETH/LIDO VISC 1:1 30 ML BOTTLE PO ONE (17:46)
[2019-06-10] MEDS ORDERED: FUROSEMIDE 40 MG/4 ML VIAL IV ONE (17:55)
[2019-06-10] MEDS ORDERED: ONDANSETRON 4 MG/2 ML VIAL IV PRN (17:56)
[2019-06-10] MEDS ORDERED: MAGNESIUM SULF RIDER 4 GM in PREMIX 1 EACH IV PRN (17:56)
[2019-06-10] MEDS ORDERED: BISACODYL 5 MG TABLET PO PRN (17:56)
[2019-06-10] MEDS ORDERED: MAGNESIUM HYDROXIDE SUSP 30 ML UDCUP PO PRN (17:56)
[2019-06-10] MEDS ORDERED: MAGNESIUM SULF RIDER 2 GM in PREMIX 1 EACH IV PRN (17:56)
[2019-06-10] MEDS ORDERED: POTASSIUM CHLORIDE 20 MEQ TABLET PO PRN ×2 (17:56)
[2019-06-10] MEDS: cefTRIAXone 1,000 MG in SYRINGE 1 EACH IV SCH (18:31)
[2019-06-10 19:06] LABS: Basophils # 0.1 10*3/uL (0.0-0.2); Basophils % 0.5 % (0.0-0.8); Eosinophils % 0.1 % (0.00-10.9); Hematocrit 34.9 VOL% (42.0-52.0); Hemoglobin 11.3 GM/DL (14.0-18.0); Immature Granulocytes % 0.5 %; Immature Granulocytes Absolute 0.07 #; Lymphocytes # 1.9 10*3/uL (1.4-4.0); Lymphocytes % 12.7 % (21.2-54.2); Mean Corpuscular HGB Conc 32.4 GM/DL (32-36); Mean Corpuscular Volume 97.5 FL (87-102); Mean Platelet Volume 10.2 FL (9.6-12.0); Monocytes % 11.2 % (1.7-12.7); Platelet Count 266 T/CUMM (130-400); Red Blood Count 3.58 MC/CUMM (3.8-5.5); White Blood Count 15.1 T/CUMM (4-12)
[2019-06-10 19:25] LABS: Albumin 2.9 G/DL (3.4-5.0); Bilirubin,Total 0.4 MG/DL (0.2-1.0); Calcium 9.2 MG/DL (8.5-10.1); Osmolality,Calculated 282.2 MOS/KG (273-304); Total Protein 6.6 G/DL (6.4-8.3)
[2019-06-10] MEDS: ALBUTEROL/IPRATROPIUM 3 ML NEB RESP TX SCH (20:30)
[2019-06-10] MEDS: INSULIN REGULAR 100 UNIT/ML SUBCUT SCH (21:04)
[2019-06-10] MEDS: FLUTICASONE/SALMETEROL 100-50 DISKUS 14 DOSE INH SCH (21:04)
[2019-06-10] MEDS: MONTELUKAST 10 MG TABLET PO SCH (21:05)
[2019-06-10] MEDS: carvediloL 6.25 MG TABLET PO SCH (21:05)
[2019-06-10] MEDS: APIXABAN 5 MG TABLET PO SCH (21:05)
[2019-06-10] MEDS: AMIODARONE 200 MG TABLET PO SCH (21:06)
[2019-06-10] MEDS: metFORMIN 500 MG TABLET PO SCH (21:06)
[2019-06-10] MEDS: MORPHINE 4 MG/1 ML VIAL IV PRN (21:42)
[2019-06-11] MEDS: POTASSIUM CHLORIDE 10 MEQ TABLET PO SCH ×3 (00:06→22:16)
[2019-06-11] MEDS: TEMAZEPAM 15 MG CAPSULE PO SCH ×2 (00:07→22:16)
[2019-06-11] MEDS: ASPIRIN 325 MG TABLET PO SCH ×4 (00:07→23:00)
[2019-06-11] MEDS: ALBUTEROL/IPRATROPIUM 3 ML NEB RESP TX SCH ×4 (00:52→19:53)
[2019-06-11] MEDS: ACETAMINOPHEN 325 MG TABLET PO PRN (03:15)
[2019-06-11 04:54] LABS: Basophils # 0.1 10*3/uL (0.0-0.2); Basophils % 0.5 % (0.0-0.8); Eosinophils # 0.1 10*3/uL (0.0-0.87); Eosinophils % 0.6 % (0.00-10.9); Hematocrit 33.9 VOL% (42.0-52.0); Hemoglobin 10.8 GM/DL (14.0-18.0); Immature Granulocytes % 0.6 %; Immature Granulocytes Absolute 0.08 #; Lymphocytes # 2.6 10*3/uL (1.4-4.0); Lymphocytes % 18.8 % (21.2-54.2); Mean Corpuscular HGB Conc 31.9 GM/DL (32-36); Mean Corpuscular Volume 99.7 FL (87-102); Monocytes % 13.7 % (1.7-12.7); Neutrophils % 65.8 % (38.7-73.9); Platelet Count 260 T/CUMM (130-400); Red Cell Distribution Width 14.3 % (9.3-17.3); White Blood Count 13.8 T/CUMM (4-12)
[2019-06-11 05:39] LABS: Albumin 2.9 G/DL (3.4-5.0); Bilirubin,Total 0.6 MG/DL (0.2-1.0); Calcium 8.9 MG/DL (8.5-10.1); Total Protein 6.6 G/DL (6.4-8.3)
[2019-06-11] MEDS ORDERED: FUROSEMIDE 40 MG/4 ML VIAL IV SCH (08:00)
[2019-06-11] MEDS ORDERED: ASPIRIN EC 81 MG TABLET PO SCH (09:00)
[2019-06-11] MEDS: INSULIN REGULAR 100 UNIT/ML SUBCUT SCH ×4 (09:03→22:15)
[2019-06-11] MEDS: AMIODARONE 200 MG TABLET PO SCH ×2 (09:04→22:15)
[2019-06-11] MEDS: FLUoxetine 20 MG CAPSULE PO SCH (09:04)
[2019-06-11] MEDS: MAGNESIUM OXIDE 400 MG TABLET PO SCH (09:04)
[2019-06-11] MEDS: carvediloL 6.25 MG TABLET PO SCH ×2 (09:04→22:15)
[2019-06-11] MEDS: COLCHICINE 0.6 MG CAPSULE PO SCH (09:04)
[2019-06-11] MEDS: ATORVASTATIN 40 MG TABLET PO SCH (09:05)
[2019-06-11] MEDS: metFORMIN 500 MG TABLET PO SCH ×2 (09:05→22:15)
[2019-06-11] MEDS: CYANOCOBALAMIN 500 MCG TABLET PO SCH (09:05)
[2019-06-11] MEDS: PANTOPRAZOLE 40 MG TABLET PO SCH (09:05)
[2019-06-11] MEDS: FLUTICASONE/SALMETEROL 100-50 DISKUS 14 DOSE INH SCH ×2 (09:05→22:15)
[2019-06-11] MEDS: APIXABAN 5 MG TABLET PO SCH (09:05)
[2019-06-11] MEDS: lisinopriL 20 MG TABLET PO SCH (09:05)
[2019-06-11] MEDS: GLIMEPIRIDE 4 MG TABLET PO SCH (09:05)
[2019-06-11] MEDS: MORPHINE 4 MG/1 ML VIAL IV PRN ×2 (09:06→19:42)
[2019-06-11] MEDS ORDERED: FUROSEMIDE 40 MG/4 ML VIAL IV ONE (11:15)
[2019-06-11] MEDS: cefTRIAXone 1,000 MG in SYRINGE 1 EACH IV SCH (17:03)
[2019-06-11] MEDS ORDERED: METOPROLOL TARTRATE 5 MG/5 ML VIAL IV ONE (20:23)
[2019-06-11] MEDS ORDERED: METOPROLOL TARTRATE 25 MG TABLET PO ONE (20:23)
[2019-06-11] MEDS: MONTELUKAST 10 MG TABLET PO SCH (22:16)
[2019-06-12] MEDS: ALBUTEROL/IPRATROPIUM 3 ML NEB RESP TX SCH ×4 (01:25→20:26)
[2019-06-12 06:06] LABS: Basophils # 0.1 10*3/uL (0.0-0.2); Basophils % 0.4 % (0.0-0.8); Eosinophils % 0.2 % (0.00-10.9); Hematocrit 32.5 VOL% (42.0-52.0); Hemoglobin 10.2 GM/DL (14.0-18.0); Immature Granulocytes % 0.7 %; Immature Granulocytes Absolute 0.15 #; Lymphocytes # 2.1 10*3/uL (1.4-4.0); Lymphocytes % 10.2 % (21.2-54.2); Mean Corpuscular HGB Conc 31.4 GM/DL (32-36); Mean Corpuscular Volume 99.1 FL (87-102); Mean Platelet Volume 9.9 FL (9.6-12.0); Monocytes % 9.9 % (1.7-12.7); Neutrophils % 78.6 % (38.7-73.9); Platelet Count 246 T/CUMM (130-400); Red Blood Count 3.28 MC/CUMM (3.8-5.5); Red Cell Distribution Width 14.1 % (9.3-17.3); White Blood Count 20.6 T/CUMM (4-12)
[2019-06-12] MEDS: ASPIRIN 325 MG TABLET PO SCH ×3 (06:08→20:59)
[2019-06-12 06:38] LABS: Calcium 8.9 MG/DL (8.5-10.1); Osmolality,Calculated 284.2 MOS/KG (273-304)
[2019-06-12 07:19] LABS: Lymphocytes 10 % (20-55); Platelet Estimate Normal; Segmented Neutrophils 83 % (50-85); Total Cells Counted 100
[2019-06-12 07:20] LABS: Anisocytosis 1+; Hypochromasia 2+; Macrocytosis 1+; Target Cells 1+
[2019-06-12] MEDS: INSULIN REGULAR 100 UNIT/ML SUBCUT SCH ×4 (08:13→21:17)
[2019-06-12] MEDS: MAGNESIUM OXIDE 400 MG TABLET PO SCH (08:46)
[2019-06-12] MEDS: COLCHICINE 0.6 MG CAPSULE PO SCH (08:46)
[2019-06-12] MEDS: GLIMEPIRIDE 4 MG TABLET PO SCH (08:46)
[2019-06-12] MEDS: POTASSIUM CHLORIDE 10 MEQ TABLET PO SCH ×2 (08:46→20:59)
[2019-06-12] MEDS: FLUTICASONE/SALMETEROL 100-50 DISKUS 14 DOSE INH SCH ×2 (08:47→20:59)
[2019-06-12] MEDS: metFORMIN 500 MG TABLET PO SCH ×2 (08:47→21:00)
[2019-06-12] MEDS: CYANOCOBALAMIN 500 MCG TABLET PO SCH (08:47)
[2019-06-12] MEDS: ATORVASTATIN 40 MG TABLET PO SCH (08:47)
[2019-06-12] MEDS: PANTOPRAZOLE 40 MG TABLET PO SCH (08:47)
[2019-06-12] MEDS: AMIODARONE 200 MG TABLET PO SCH ×2 (08:47→21:00)
[2019-06-12] MEDS: FLUoxetine 20 MG CAPSULE PO SCH (08:47)
[2019-06-12] MEDS: lisinopriL 20 MG TABLET PO SCH (08:47)
[2019-06-12] MEDS: carvediloL 6.25 MG TABLET PO SCH ×2 (08:47→20:59)
[2019-06-12] MEDS: FUROSEMIDE 40 MG TABLET PO SCH (13:28)
[2019-06-12] MEDS: cefTRIAXone 1,000 MG in SYRINGE 1 EACH IV SCH (18:32)
[2019-06-12] MEDS: TEMAZEPAM 15 MG CAPSULE PO SCH (20:59)
[2019-06-12] MEDS: MONTELUKAST 10 MG TABLET PO SCH (21:00)
[2019-06-13] MEDS: ALBUTEROL/IPRATROPIUM 3 ML NEB RESP TX SCH ×3 (00:46→13:31)
[2019-06-13] MEDS: ACETAMINOPHEN 325 MG TABLET PO PRN (02:23)
[2019-06-13] MEDS: ASPIRIN 325 MG TABLET PO SCH ×2 (05:34→13:31)
[2019-06-13 06:17] LABS: Basophils # 0.1 10*3/uL (0.0-0.2); Basophils % 0.5 % (0.0-0.8); Eosinophils # 0.2 10*3/uL (0.0-0.87); Eosinophils % 1.4 % (0.00-10.9); Hematocrit 31.7 VOL% (42.0-52.0); Hemoglobin 10.3 GM/DL (14.0-18.0); Immature Granulocytes % 0.7 %; Lymphocytes # 1.7 10*3/uL (1.4-4.0); Lymphocytes % 11.1 % (21.2-54.2); Mean Corpuscular HGB Conc 32.5 GM/DL (32-36); Mean Corpuscular Volume 96.9 FL (87-102); Mean Platelet Volume 9.7 FL (9.6-12.0); Monocytes % 11.7 % (1.7-12.7); Neutrophils % 74.6 % (38.7-73.9); Platelet Count 263 T/CUMM (130-400); Red Blood Count 3.27 MC/CUMM (3.8-5.5); Red Cell Distribution Width 13.9 % (9.3-17.3); White Blood Count 15.2 T/CUMM (4-12)
[2019-06-13 06:32] LABS: Calcium 8.7 MG/DL (8.5-10.1); Osmolality,Calculated 283.2 MOS/KG (273-304)
[2019-06-13] MEDS: FUROSEMIDE 40 MG TABLET PO SCH (09:53)
[2019-06-13] MEDS: lisinopriL 20 MG TABLET PO SCH (09:53)
[2019-06-13] MEDS: carvediloL 6.25 MG TABLET PO SCH (09:53)
[2019-06-13] MEDS: MAGNESIUM OXIDE 400 MG TABLET PO SCH (09:54)
[2019-06-13] MEDS: COLCHICINE 0.6 MG CAPSULE PO SCH (09:54)
[2019-06-13] MEDS: FLUoxetine 20 MG CAPSULE PO SCH (09:54)
[2019-06-13] MEDS: ATORVASTATIN 40 MG TABLET PO SCH (09:54)
[2019-06-13] MEDS: GLIMEPIRIDE 4 MG TABLET PO SCH (09:54)
[2019-06-13] MEDS: AMIODARONE 200 MG TABLET PO SCH (09:54)
[2019-06-13] MEDS: CYANOCOBALAMIN 500 MCG TABLET PO SCH (09:54)
[2019-06-13] MEDS: POTASSIUM CHLORIDE 10 MEQ TABLET PO SCH (09:55)
[2019-06-13] MEDS: FLUTICASONE/SALMETEROL 100-50 DISKUS 14 DOSE INH SCH (09:56)
[2019-06-13] MEDS: PANTOPRAZOLE 40 MG TABLET PO SCH (09:59)
[2019-06-13] MEDS: INSULIN REGULAR 100 UNIT/ML SUBCUT SCH ×2 (10:00→12:47)
[2019-06-13] MEDS: metFORMIN 500 MG TABLET PO SCH (10:25)
[2019-06-13 12:15] VITALS: BP 88/62
[2019-06-13 14:12] LABS: Barbiturates Screen,Urine Negative (Negative); Benzodiazepines Screen,Urine Negative (Negative); Cannabinoid Screen,Urine Negative (Negative); Opiate Screen,Urine Positive (Negative); Phencyclidine Screen,Urine Negative (Negative)
[2019-06-17] MEDS ORDERED: ERGOCALCIFEROL 50,000 UNIT CAPSULE PO SCH (09:00)
== END 2019-06-13 14:40 | disposition home or self-care (01) | DRG 314 ==
LOC: N.TELEN
PROVIDERS: ADMIT Internal Medicine; ATTEND Internal Medicine